=== PATIENT | male | born 1985 | race Caucasian/White ===

== ENCOUNTER 2020-07-24 12:15 | Inpatient (IN) | payer MEDICAID ==
[~2020-07-24] VITALS: Ht 172.7 cm; Wt 74.8 kg
[2020-07-24] MEDS ORDERED: ASPIRIN 81MG TABLET PO ONE (12:45)
[2020-07-24] MEDS ORDERED: NITROGLYCERIN OINT 1GM/INCH UDPKT TD ONE (12:45)
[2020-07-24 13:06] LABS: HEMATOCRIT. 43.6 % (42.0-52.0); HEMOGLOBIN. 15.2 g/dL (14.0-18.0); LYMPHOCYTES % 39.2 % (20.0-50.0); MEAN CORPUSCULAR VOLUME 83.4 fL (80.0-94.0); MEAN PLATELET VOLUME 8.8 fl (7.4-10.4); MONOCYTES % 8.2 % (2.0-8.0); NEUTROPHILS % 50.6 % (40.0-76.0); PLATELET 267 x1000/uL (130-400); RED BLOOD CELL COUNT 5.23 mill/uL (4.7-6.1); RED CELL DISTRIBUTION WIDTH 13.2 % (11.6-14.6)
[2020-07-24 13:13] LABS: CHLORIDE 106 mEq/L (98-107)
[2020-07-24 13:41] LABS: D-DIMER 0.22 mg/L FEU (<0.50); PROTHROMBIN TIME 10.9 sec (9.6-11.0)
[2020-07-24] MEDS ORDERED: MAGNESIUM/ALUMINUM HYDROXIDE/SIMETHICONE 30ML UDC PO PRN (15:45)
[2020-07-24] MEDS ORDERED: ACETAMINOPHEN 325MG TABLET PO PRN ×2 (15:45)
[2020-07-24] MEDS ORDERED: ONDANSETRON HCL 4MG/2ML INJ IV PRN (15:45)
[2020-07-24] MEDS ORDERED: IOHEXOL-350 100 ML BOTTLE ONE (15:55)
[2020-07-24 16:17] LABS: T4 FREE 0.66 ng/dL (0.76-1.46)
[2020-07-24 16:45] LABS: *AMPHETAMINES SCREEN URINE NEGATIVE (NEGATIVE); *BARBITURATES SCREEN URINE NEGATIVE (NEGATIVE); *BENZODIAZEPINES SCREEN URINE NEGATIVE (NEGATIVE); *COCAINE SCREEN URINE NEGATIVE (NEGATIVE); CANNABINOID URINE SCREEN NEGATIVE (NEGATIVE); METHADONE URINE SCREEN NEGATIVE (NEGATIVE); OPIATES URINE SCREEN NEGATIVE (NEGATIVE)
[2020-07-24 16:48] LABS: PHENCYCLIDINE URINE SCREEN NEGATIVE (NEGATIVE)
[2020-07-24] MEDS ORDERED: FAMOTIDINE 20MG TABLET PO SCH (21:00)
[2020-07-24] MEDS ORDERED: ZOLPIDEM TARTRATE 5MG TABLET PO PRN (21:00)
[2020-07-24] MEDS: AMLODIPINE 5MG TABLET PO SCH (21:13)
[2020-07-24] MEDS: SODIUM CHLORIDE 0.9% INJ 3ML FLUSH IVF SCH (22:47)
[2020-07-24] MEDS ORDERED: KETOROLAC 30MG/ML VIAL IV ONE (23:45)
[2020-07-25] MEDS: SODIUM CHLORIDE 0.9% INJ 3ML FLUSH IVF SCH ×2 (06:50→13:44)
[2020-07-25 08:40] VITALS: BP 128/79
[2020-07-25] MEDS: AMLODIPINE 5MG TABLET PO SCH (09:38)
[2020-07-25] MEDS ORDERED: INFLUENZA VACCINE 05/PF 0.5 ML VIAL IM ONE (10:00)
[2020-07-25 12:00] VITALS: BP 138/84
[2020-07-25 14:05] VITALS: BP 138/84
[2020-07-25 16:00] VITALS: BP 130/82
== END 2020-07-25 17:40 | disposition home or self-care (01) | DRG 203 ==
LOC: ER 12:33 → EDBEDREQTM 13:55 → MICUSO 14:15 → EDBEDREQTM 14:24 → EDBEDREQ 14:24 → 8WST 07-25 08:23
PROVIDERS: ADMIT Internal Medicine; ATTEND Internal Medicine
DX: M94.0 Chondrocostal junction syndrome [Tietze] (principal); I16.0 Hypertensive urgency; I10 Essential (primary) hypertension; F17.200 Nicotine dependence, unspecified, uncomplicated; Z71.6 Tobacco abuse counseling; Z88.1 Allergy status to other antibiotic agents; Z90.49 Acquired absence of other specified parts of digestive tract; Z86.16 Personal history of COVID-19; Z83.3 Family history of diabetes mellitus
CPT/HCPCS: 36415; 71045; 71275; 80053; 80305; 83880; 84439; 84443; 84484; 85025; 85379; 93005; 93306; 99291; Q9967